=== PATIENT | female | born 1945 | race Caucasian/White ===

== ENCOUNTER 2025-06-15 09:13 | Outpatient (CLI) | payer MEDICARE, OTHER | END 2025-06-15 09:14 | disposition home or self-care (01) | LOC: CSHMAMMO 09:13 | PROVIDERS: ATTEND Internal Medicine | DX: R92.8 Other abnormal and inconclusive findings on diagnostic imaging of breast (principal) | CPT/HCPCS: 76642; 77065; G0279 ==